=== PATIENT | female | born 1955 | race Hispanic/Latino ===

== ENCOUNTER 2021-10-22 16:21 | Inpatient (IN) | payer MEDICARE, OTHER, SELFPAY ==
[2021-10-22] VITALS (11 sets, daily range): BP systolic 102–139; BP diastolic 43–77; PULSE 67–85; RESP 17–18; TEMP 36.6–37.3; O2SAT 93–98; BMI 29.2
--- NOTE | 2021-10-22 17:05 | ED.EXTPRO ---
HPI - Extremity Problem General Chief complaint: Extremity Problem,Nontraumatic Stated complaint: RIGHT LEG CRAMP Time Seen by Provider: 10/22/21 16:45 Source: patient and family Mode of arrival: Wheelchair History of Present Illness HPI Narrative: Patient is 66-year-old female history of coronary artery disease with 4 stents, chronic cough presenting today with right leg pain. It starts from her hip and goes all way down to her toe. sHe said it started last evening. She says starts in her buttock. She has no changes in bowel or bladder habits. She denies any back pain. Support person with her states that her cough and shortness of breath have gotten worse over the last few days but patient denies it. She has no chest pain or palpitations. She has not had any fever or chills. Her cough is very nonproductive. Patient actually says that she had difficulty sleeping last night because she kept coughing. She had COVID a few months ago. Patient does have a very remote history of DVT 4 years ago she was put on warfarin. She is up here visiting on vacation she actually walked a lot yesterday more so than she normally does. She is on Lyrica for neuropathy and pain all ready. Related Data Home Medications Medication Instructions Recorded Confirmed aspirin 81 mg chewable tablet 81 mg PO DAILY 10/22/21 10/22/21 carvedilol 3.125 mg tablet 1 tab PO BID 10/22/21 10/22/21 clopidogrel 75 mg tablet 1 tab PO QAM 10/22/21 10/22/21 docusate sodium 50 mg capsule 50 mg PO BID 10/22/21 10/22/21 famotidine 20 mg tablet 20 mg PO BID 10/22/21 10/22/21 ferrous sulfate 325 mg (65 mg 325 mg PO DAILY 10/22/21 10/22/21 iron) tablet furosemide 40 mg tablet 1 tab PO QAM 10/22/21 10/22/21 insulin aspart U-100 100 unit/mL See Rx Instructions .Route .COMPLEX 10/22/21 10/22/21 subcutaneous cartridge (Novolog PenFill U-100 Insulin aspart) insulin glargine 100 unit/mL (3 25 unit SUBCUT QAM 10/22/21 10/22/21 mL) subcutaneous pen (Lantus Solostar U-100 Insulin) isosorbide dinitrate 10 mg tablet 1 tab PO BID 10/22/21 10/22/21 pregabalin 50 mg capsule 1 cap PO QAM 10/22/21 10/22/21 rosuvastatin 40 mg tablet 1 tab PO QPM 10/22/21 10/22/21 sacubitril 24 mg-valsartan 26 mg 1 tab PO BID 10/22/21 10/22/21 tablet (Entresto) spironolactone 25 mg tablet 1 tab PO QAM 10/22/21 10/22/21 Allergies Allergy/AdvReac Type Severity Reaction Status Date / Time gabapentin Allergy Rash Verified 10/22/21 16:35 Review of Systems Review of Systems Narrative: GENERAL: Denies chills, fatigue, malaise, fever, sweats, travel HEENT: Denies sinus pain, ear pain, sore throat, difficulty swallowing, neck pain RESPIRATORY: See HPI CARDIOVASCULAR: Denies chest pain, palpitations, orthopnea, edema GASTROINTESTINAL: Denies nausea, vomiting, abdominal pain, diarrhea, constipation, melena. : Denies dysuria, frequency, incontinence, hematuria, urinary retention, flank pain. MUSCULOSKELETAL: See HPI SKIN: No rash, no erythema, no pruritus NEUROLOGIC: Denies weakness, dizziness, headache, numbness, change in speech, confusion PSYCHIATRIC: No concerning psychosocial issues. 12 point review of systems is negative except for those stated above and HPI Patient History Social History household members: significant other Smoking Status: Never smoker alcohol intake: never Smoking Status: Never smoker Substance Use Type: does not use Exam Initial Vital Signs Initial Vital Signs: Vital Signs Temperature 99.1 F 10/22/21 16:30 Pulse Rate 82 10/22/21 16:30 Respiratory Rate 18 10/22/21 16:30 Blood Pressure 110/56 L 10/22/21 16:30 Pulse Oximetry 93 10/22/21 16:30 Oxygen Delivery Method 10/22/21 16:30 GENERAL: Alert 66-year-old female no acute distress HEENT: Head atraumatic,EOMI, pupils reactive, face symmetric, moist mucous membranes CARDIOVASCULAR: Regular rate and rhythm without murmurs, rubs or gallops. RESPIRATORY: Breath sounds equal bilaterally, no wheezes rales or rhonchi. Coughing with deep breath ABDOMEN: Soft, nontender. Normoactive bowel sounds all 4 quadrants. No guarding or rebound. EXTREMITIES: Normal range of motion, no clubbing or edema. Neurovascularly intact Right-sided buttock pain is reproducible with palpation no hip pain NEUROLOGICAL: Alert and oriented x4.Normal gait and speech. SKIN: Warm, dry, no laceration, no petechiae, no rashes or lesions. Course Orders Ordered: Acetaminophen (Acetaminophen 325 Mg Tablet) 650 mg PO Q6HR PRN PRN Reason: Fever/Mild Pain (1-3) Aspirin (Aspirin 81 Mg Chew Tab) 81 mg PO DAILY [facility] Carvedilol (Carvedilol 3.125 Mg Tablet) 3.125 mg PO BID [facility] Clopidogrel Bisulfate (Clopidogrel 75 Mg Tablet) 75 mg PO DAILY [facility] Last Admin: 10/23/21 06:49 Dose: 75 mg Documented By: TONIE Dextrose (Dextrose 50 % In Water 25 Gm/50 Ml Syringe) 25 gm IV PRN PRN PRN Reason: Hypoglycemia Furosemide (Furosemide 40 Mg/4 Ml Vial) 40 mg IV Q12HR [facility] Last Admin: 10/23/21 00:30 Dose: 40 mg Documented By: TONIE Heparin Sodium (Porcine) (Heparin 5,000 Unit/Ml Vial) 5,000 unit SUBCUT BID [facility] Last Admin: 10/23/21 00:15 Dose: 5,000 unit Documented By: TONIE Insulin Glargine (Insulin Glargine 100 Unit/Ml 3ml Pen) 25 unit SUBCUT BEDTIME [facility] Last Admin: 10/23/21 00:16 Dose: 25 unit Documented By: TONIE Co-signed By: JASWINDER Insulin Human Lispro (Insulin Lispro 100 Unit/Ml 3ml Vial) 0 unit SUBCUT ACHS [facility]; Protocol Last Admin: 10/23/21 00:23 Dose: 1 unit Documented By: TONIE Co-signed By: JASWINDER Isosorbide Dinitrate (Isosorbide Dinitrate 10 Mg Tablet) 10 mg PO BID [facility] Naloxone HCl (Naloxone 0.4 Mg/Ml Vial) 0.2 mg IV Q2MIN PRN PRN Reason: Opiate Reversal Ondansetron HCl (Ondansetron 4 Mg/2 Ml Inj) 4 mg IV Q8HR PRN PRN Reason: Nausea And Vomiting Discontinued Medications Albuterol/Ipratropium (Albuterol/Ipratropium 3 Ml Ampul) 3 ml INH NOW ONE Stop: 10/22/21 17:42 Furosemide (Furosemide 40 Mg/4 Ml Vial) 40 mg IV NOW ONE Stop: 10/22/21 18:22 Last Admin: 10/22/21 18:45 Dose: 40 mg Documented By: ROB Hydromorphone HCl (Hydromorphone 1 Mg Inj) 0.5 mg IV NOW ONE Stop: 10/22/21 17:17 Last Admin: 10/22/21 17:42 Dose: 0.5 mg Documented By: ROB Vital Signs Vital signs: Vital Signs - 8 hr 10/22/21 16:30 10/22/21 16:39 10/22/21 17:00 Temperature 99.1 F Pulse Rate 82 81 83 Respiratory Rate 18 Blood Pressure 110/56 L 112/58 L Pulse Oximetry 93 95 96 Oxygen Delivery Method Room Air 10/22/21 17:30 10/22/21 18:00 10/22/21 18:30 Temperature Pulse Rate 81 85 79 Respiratory Rate Blood Pressure 116/58 L 123/77 Pulse Oximetry 96 94 93 Oxygen Delivery Method MDM - Extremity (Nontraumatic) Lab Data Result diagrams: 10/23/21 06:02 10/23/21 06:02 Labs: Lab Results 10/22/21 10/22/21 10/22/21 Range/Units 16:34 17:35 17:35 WBC 7.8 (4.5-11.0) X10^3/uL RBC 3.26 L (4.0-5.2) X10^6/uL Hgb 9.4 L (12.0-16.0) g/dL Hct 27.9 L (36-46) % MCV 85.6 (80-100) fL MCH 28.9 (26-34) PG MCHC 33.8 (30-36) % RDW 12.6 (11.6-14.8) % Plt Count 171 (150-400) X10^3/uL Neut % (Auto) 68.5 (50-75) % Lymph % (Auto) 12.7 L (25-40) % [place] % (Auto) 11.5 (3-14) % Eos % (Auto) 6.5 H (2-4) % Baso % (Auto) 0.8 (0-2) % Neut # (Auto) 5300 (6979-0558) /uL Lymph # (Auto) 1000 L (0550-6290) /uL [place] # (Auto) 900 (0-900) /uL Eos # (Auto) 500 H (0-450) /uL Baso # (Auto) 100 (0-100) /uL Sodium 135 L (137-145) mmol/L Potassium 4.5 (3.4-5.1) mmol/L Chloride 100 (98-107) mmol/L Carbon Dioxide 27 (22-32) mmol/L BUN 48 H (7-17) mg/dL Creatinine 3.07 H (0.52-1.04) mg/dL Estimated GFR 16 L (>60) mL/min BUN/Creatinine Ratio 15.6 (6-22) Glucose 309 H (80-110) mg/dL Calcium 8.2 L (8.4-10.2) mg/dL Total Bilirubin 0.5 (0.2-1.3) mg/dL AST 32 (14-36) IU/L ALT 20 (<35) IU/L Alkaline Phosphatase 114 (38-126) U/L Total Creatine Kinase 410 H (30-135) U/L CK-MB (CK-2) 3.28 H (<2.37) ng/mL CK-MB (CK-2) Rel Index 0.8 L (1.5-5.0) % Troponin I 0.035 H (0.01-0.034) ng/mL NT-Pro-B Natriuret Pep 3340 H (<125) pg/mL Total Protein 7.9 (6.3-8.2) g/dL Albumin 4.2 (3.5-5.0) g/dL Globulin 3.7 (1.7-4.1) g/dL Albumin/Globulin Ratio 1.1 (1.0-2.8) Lipase 122 (23-300) U/L SARS-CoV-2 (PCR) Negative (Negative) Imaging Data Chest x-ray: Radiologist's Impression: XRay Report Signed Patient: Suzanne Valle MR#: [id number] : 1955 Acct:[id number] Age/Sex: 66 / F Date of Service: 10/22/21 Loc: ED Accession Number: [id number] ?? Procedure: XR chest 1V Ordering Provider: Caprice Live D.O. PROCEDURE:? XR CHEST 1V ? INDICATIONS:? short of breath ? TECHNIQUE:? One view of the chest was acquired.? ? COMPARISON:? [facility], CR, XR CHEST 1 VIEW, 12/11/2018, 13:17. ? FINDINGS:? ? Surgical changes and devices:? Median sternotomy wires are stable..? ? Lungs and pleura:? Streaky opacity in left lung base which are stable compared to prior exam could represent recurrent atelectasis or parenchymal scarring.? No pleural effusions or pneumothorax.? ? Mediastinum:? Mediastinal contours appear normal.? Heart size is normal.? ? Bones and chest wall:? No suspicious bony lesions.? Overlying soft tissues appear unremarkable.? ? IMPRESSION:? No acute cardiopulmonary disease process. ? ? Dictated by: Carol Avina MD, PhD on 10/22/2021 at 17:58 ? ? ECG Data Interpretation: Normal sinus rhythm rate 70 p.r. interval 122 QRS [address] Q[address] changes T-wave inversions no priors to compare MDM Narrative Medical decision making narrative: Patient is here because she is complaining of pain in her right leg from her buttock down to her toe, pain is to sciatic like pain. It starts in her buttock it is worse with movement difficult to find a comfortable position. No significant swelling. However she does have a remote history of a DVT. All blood work reveals that she actually has an elevated creatinine of 3.0 BNP of greater than 3000. She is having more shortness of breath than normal according to her sister. Probable acute exacerbation of congestive heart failure and acute KI. Her other sister was able to find blood work off from May of 2021. Her creatinine then was 1.8 her hemoglobin was 11. Today creatinine is elevated at 3.0, hemoglobin is 9.8 troponin 0.035. Troponin is likely elevated secondary to kidney function may repeat pending. Patient O2 does decreased to 88% on room air Patient is given 40 mg of Lasix for diuresis. Dr. Novak, accepts patient for admission Discharge Plan Departure Patient Disposition: Admitted As Inpatient Clinical Impression: CHF (congestive heart failure), GRZEGORZ (acute kidney injury), Sciatica Admit Date/Time: 10/22/21 18:48 Admit Provider: Nelida Barrera
--- NOTE | 2021-10-22 17:17 | DI.RAD.S_ITS ---
PROCEDURE: XR CHEST 1V INDICATIONS: short of breath TECHNIQUE: One view of the chest was acquired. COMPARISON: [facility], CR, XR CHEST 1 VIEW, 12/11/2018, 13:17. FINDINGS: Surgical changes and devices: Median sternotomy wires are stable.. Lungs and pleura: Streaky opacity in left lung base which are stable compared to prior exam could represent recurrent atelectasis or parenchymal scarring. No pleural effusions or pneumothorax. Mediastinum: Mediastinal contours appear normal. Heart size is normal. Bones and chest wall: No suspicious bony lesions. Overlying soft tissues appear unremarkable. IMPRESSION: No acute cardiopulmonary disease process. Dictated by: Carol Avina MD, PhD on 10/22/2021 at 17:58 Approved by: Carol Avina MD, PhD on 10/22/2021 at 17:58
[2021-10-22 17:42] LABS: Add Manual Diff / Slide Review NO; Basophils Absolute Auto 100 /uL (0-100); Basophils Percent Auto 0.8 % (0-2); Eosinophils Absolute Auto 500 /uL (0-450); Eosinophils Percent Auto 6.5 % (2-4); Hematocrit 27.9 % (36-46); Hemoglobin 9.4 g/dL (12.0-16.0); Lymphocytes Absolute Auto 1000 /uL (1100-4500); Lymphocytes Percent Auto 12.7 % (25-40); Mean Corpuscular HGB Conc 33.8 % (30-36); Mean Corpuscular Hemoglobin 28.9 PG (26-34); Mean Corpuscular Volume 85.6 fL (80-100); Monocytes Absolute Auto 900 /uL (0-900); Monocytes Percent Auto 11.5 % (3-14); Neutrophils Absolute Auto 5300 /uL (1500-7000); Neutrophils Percent Auto 68.5 % (50-75); Platelet Count 171 X10^3/uL (150-400); Red Blood Cell Count 3.26 X10^6/uL (4.0-5.2); Red Cell Distribution Width 12.6 % (11.6-14.8); White Blood Cell Count 7.8 X10^3/uL (4.5-11.0)
[2021-10-22] MEDS: HYDROMORPHONE 1 MG INJ 0.5 MG IV (17:42)
[2021-10-22 17:54] LABS: Alanine Aminotransferase 20 IU/L (<35); Albumin 4.2 g/dL (3.5-5.0); Albumin Globulin Ratio 1.1 (1.0-2.8); Alkaline Phosphatase 114 U/L (38-126); Aspartate Aminotransferase 32 IU/L (14-36); BUN Creatinine Ratio 15.6 (6-22); Bilirubin Total 0.5 mg/dL (0.2-1.3); Blood Urea Nitrogen 48 mg/dL (7-17); Calcium 8.2 mg/dL (8.4-10.2); Carbon Dioxide 27 mmol/L (22-32); Chloride 100 mmol/L (98-107); Creatine Kinase 410 U/L (30-135); Estimated Glomerular Filt Rate 16 mL/min (>60); Globulin 3.7 g/dL (1.7-4.1); Glucose 309 mg/dL (80-110); HEMOLYSIS < 15 (0-50); Lipase 122 U/L (23-300); Potassium 4.5 mmol/L (3.4-5.1); Sodium 135 mmol/L (137-145); Total Protein 7.9 g/dL (6.3-8.2)
[2021-10-22 18:05] LABS: NT-proBNP (BNP-Adult 18+) 3340 pg/mL (<125); Troponin I 0.035 ng/mL (0.01-0.034)
[2021-10-22 18:13] LABS: CKMB % Relative Index 0.8 % (1.5-5.0); Creatine Kinase MB 3.28 ng/mL (<2.37)
[2021-10-22] MEDS: FUROSEMIDE 40 MG/4 ML VIAL IV (18:45)
--- NOTE | 2021-10-22 18:45 | DI.US.S_ITS ---
PROCEDURE: US PERIPH VENOUS LOW EXTREM RT INDICATIONS: PAIN TECHNIQUE: Real-time imaging, as well as color and pulse Doppler interrogation, were performed of the lower extremity deep veins from the inguinal ligament to the popliteal fossa. COMPARISON: None. FINDINGS: The common femoral, femoral and popliteal veins are normally compressible, and free of intraluminal thrombus. Color and pulse Doppler demonstrate normal phasic intraluminal flow. There is normal augmentation response to distal compression maneuver. IMPRESSION: No evidence of deep vein thrombosis involving the right lower extremity. Dictated by: Carol Avina MD, PhD on 10/22/2021 at 19:44 Approved by: Carol Avina MD, PhD on 10/22/2021 at 19:44
[2021-10-22 19:53] LABS: COVID19 -Nasal RAPID Negative (Negative)
[2021-10-22 20:00] LABS: Troponin I 0.032 ng/mL (0.01-0.034)
--- NOTE | 2021-10-22 20:09 | PM.HP.1 ---
History of Present Illness History of Present Illness Date Patient Seen: 10/22/21 Time Patient Seen: 20:00 Chief complaint: RIGHT LEG CRAMP Narrative: Ms. Valle is a 66W with PMH CAD with stents, CKD stage 3, DM, CHF, CAD who presents with leg pain and worsening shortness of breath. She notes pain in her buttock that radiates down to her toe, which started yesterday. She has no trauma, no bowel/bladder changes. She has not had pain like this previously. She has had a chronic cough but over the past few days has worse shortness of breath. No chest pain, palpitation, fever/chills. Her cough is not productive. She had COVID months ago. She does have a remote history of a DVT. She has previously been on dialysis but this was not recently, and was in setting of acute illness and only for one month. In the ED workup was done, vitals notable for o2 sat in the 80s. Labs notable for WBC 7.8, hgb 9.4, plts 171. BUN 48, creatinine 3.07. Trop 0.035, BNP 3340. Chest xray showed no acute process. She was placed on oxygen. She was given pain medications and lasix and was admitted for further treatment. PMH: CHF, CKD stage 3, CAD s/p PCI, Type 2 DM, HTN, WALTER Social history: denies any smoking, alcohol use Family history: father with CAD, mother with DM Meds: insulin, imdur, rosuvastatin, spironolactone, plavix, coreg Patient History Family & Social History Safety & Behavioral: Feels Safe in Current Yes Environment Tobacco & Substance use: Smoking Status Never smoker Substance Use Type does not use Meds Home Medications and Allergies Allergies Allergy/AdvReac Type Severity Reaction Status Date / Time gabapentin Allergy Rash Verified 10/22/21 16:35 Review of Systems Review of Systems Narrative: 14 systems reviewed and negative aside from what is noted in HPI Exam Vital Signs (past 8 hours): - 10/22/21 16:30 10/22/21 16:39 10/22/21 17:00 Temperature 99.1 F Pulse Rate 82 81 83 Respiratory Rate 18 Blood Pressure 110/56 L 112/58 L Pulse Oximetry 93 95 96 Oxygen Delivery Method Room Air 10/22/21 17:30 10/22/21 18:00 10/22/21 18:30 Temperature Pulse Rate 81 85 79 Respiratory Rate Blood Pressure 116/58 L 123/77 Pulse Oximetry 96 94 93 Oxygen Delivery Method 10/22/21 18:46 10/22/21 18:46 10/22/21 19:00 Temperature Pulse Rate 78 67 Respiratory Rate Blood Pressure 123/73 Pulse Oximetry 98 98 Oxygen Delivery Method Oxygen Delivery Method Room Air Narrative Exam Narrative: GEN: no acute distress HEENT: moist mucous membranes, PERRL NECK: trachea midline, no JVD CV: regular rate and rhythm, no murmurs PULM: slight wheeze in right lung, otherwise clear ABD: soft, nontender, nondistended, no organomegaly, normal bowel sounds EXT: warm and well perfused with no edema NEURO: awake, alert, oriented, no focal deficits noted Objective Labs Result Diagrams: 10/22/21 17:35 10/22/21 17:35 Labs: Laboratory Results - last 24 hr 10/22/21 10/22/21 10/22/21 16:34 17:35 17:35 WBC 7.8 RBC 3.26 L Hgb 9.4 L Hct 27.9 L MCV 85.6 MCH 28.9 MCHC 33.8 RDW 12.6 Plt Count 171 Neut % (Auto) 68.5 Lymph % (Auto) 12.7 L [place] % (Auto) 11.5 Eos % (Auto) 6.5 H Baso % (Auto) 0.8 Neut # (Auto) 5300 Lymph # (Auto) 1000 L [place] # (Auto) 900 Eos # (Auto) 500 H Baso # (Auto) 100 Sodium 135 L Potassium 4.5 Chloride 100 Carbon Dioxide 27 BUN 48 H Creatinine 3.07 H Estimated GFR 16 L BUN/Creatinine Ratio 15.6 Glucose 309 H Calcium 8.2 L Total Bilirubin 0.5 AST 32 ALT 20 Alkaline Phosphatase 114 Total Creatine Kinase 410 H CK-MB (CK-2) 3.28 H CK-MB (CK-2) Rel Index 0.8 L Troponin I 0.035 H NT-Pro-B Natriuret Pep 3340 H Total Protein 7.9 Albumin 4.2 Globulin 3.7 Albumin/Globulin Ratio 1.1 Lipase 122 SARS-CoV-2 (PCR) Negative 10/22/21 19:28 WBC RBC Hgb Hct MCV MCH MCHC RDW Plt Count Neut % (Auto) Lymph % (Auto) [place] % (Auto) Eos % (Auto) Baso % (Auto) Neut # (Auto) Lymph # (Auto) [place] # (Auto) Eos # (Auto) Baso # (Auto) Sodium Potassium Chloride Carbon Dioxide BUN Creatinine Estimated GFR BUN/Creatinine Ratio Glucose Calcium Total Bilirubin AST ALT Alkaline Phosphatase Total Creatine Kinase CK-MB (CK-2) CK-MB (CK-2) Rel Index Troponin I 0.032 NT-Pro-B Natriuret Pep Total Protein Albumin Globulin Albumin/Globulin Ratio Lipase SARS-CoV-2 (PCR) Assessment & Plan Assessment & Plan narrative: Ms. Valle is a 66W with PMH CHF, CKD stage 3, CAD who presents with leg pain and worsening chronic shortness of breath. 1. Shortness of breath -presumed CHF exacerbation -patient with known history of CHF -EF unknown -ordered ECHO -low salt diet -fluid restriction -lasix 40mv IV BID, goal 1-2L net negative, may need higher doses given low GFR 2. GRZEGORZ on CKD stage 3 -baseline creatinine appears to be near 1.8 -hold spironolactone for now -check renal ultrasound, urine sodium/creatinine -empiric diuretic treatment for possible renal vascular congestion 3. Anemia -normocytic -suspect could be from long standing renal disease -no evidence of over bleeding -recheck in AM 4. Elevated troponin, myocardial demand ischemia -initial trop 0.035, repeat decreased to 0.032 -no chest pain -EKG with no acute findings -suspect demand ischemia from GRZEGORZ/ CHF -already on plavix, statin 5. CAD s/p PCI -continue plavix, statin 6. Type 2 DM on insulin -continue lantus 25U daily -low dose insulin sliding scale 7. Sciatica -patient with shooting leg leg pain originating in back -u/s negative for DVT -pain medications prn 8. WALTER -rt consult for CPAP CODE: Full Proxy: Jasmyne Ivan I have utilized all available resources to reconcile the patient's home medications Time Spent With Patient Critical Care time: I spent a total of [] minutes of critical care time on this patient's care today; this time is exclusive of procedural time. Quality MIPS - Admit I confirm the patient?s Advance Care Plan is present, Code status is documented, Surrogate decision maker is in patient?s record [If Yes, STOP here]: Yes
--- NOTE | 2021-10-22 21:29 | DI.US.S_ITS ---
PROCEDURE: US RENAL COMPLETE INDICATIONS: ACUTE KIDNEY INFECTION TECHNIQUE: Real-time scanning was performed of the kidneys and bladder, with image documentation. COMPARISON: None. FINDINGS: Kidneys: Kidneys are normal in size. Right kidney measures 9.1 cm long; left kidney measures 11.1 cm long. Right renal cortical thickness is 1.5 cm; left renal cortical thickness is 1.8 cm. Renal cortical echotexture is normal. No hydronephrosis. 6 millimeter nonobstructing stone noted in the left kidney. No suspicious solid mass lesions. Bladder: Pre-void bladder volume is 382 mL. Post-void residual is 68 mL. Pre-void images demonstrate no intraluminal masses or stones. On pre-void images, both the right and left ureteral jets are noted with color Doppler interrogation. (Of note, ureteral jets may not be detectable in up to 25% of cases due to insufficient differences in specific gravity between ureteral and bladder urine). Miscellaneous: No free pelvic fluid. IMPRESSION: 6 millimeter nonobstructing left renal stone. No hydronephrosis. Dictated by: Carol Avina MD, PhD on 10/23/2021 at 12:06 Approved by: Carol Avina MD, PhD on 10/23/2021 at 12:08
--- NOTE | 2021-10-22 21:29 | DI.ECHO.S_ITS ---
[facility]---------[facility] +---------+ : : [address] : : : : [id number] : : : : Phone: [phone] Echocardiogram Report + + :Name: GABRIELE OLMEDO Study Date: 10/23/2021 Height: 62 in : :[facility] ReadingLocation: Weight: 160 lb : : Gender: Female BSA: 1.7 m2 : :: 1955 Age: 66 yrs BP: 111/58 mmHg: :Reason For Study: CONGESTIVE HEART FAILURE : :Ordering Physician: SINAN, : :PERLA Performed By: Kayli Brennan : :Referring: PERLA MENON : + + Interpretation Summary 1) Normal left ventricular size and thickness with mildly to moderately reduced systolic function (EF 40-45%). 2) The inferior wall and the anteroseptum extending to the basal to mid inferoseptum are severely hypokinetic to akinetic. 3) Normal right ventricular size and mildly reduced function. 4) No significant valvular abonrmalitie.s 5) Compared to the Echo done 12/10/2018, LVEF has increased from 35-40% to 40- 45% on this study. Procedure: A two-dimensional transthoracic echocardiogram with color flow and Doppler was performed. The study quality was technically adequate. A contrast injection of Definity was performed to improve assessment of LV function. Comparison is made with the echocardiogram of 12/10/2018. The patient was in sinus rhythm with heart rates between 75-80 bpm during the exam. Left Ventricle: The left ventricle is normal in size and wall thickness. The ejection fraction is estimated to be 40-45%. The inferior wall and the anteroseptum extending to the basal to mid inferoseptum are severely hypokinetic to akinetic. Right Ventricle: The right ventricle is normal size. Right ventricular systolic function is mildly reduced. Atria: The left atrium is mildly dilated. Right atrial size is normal. There is no Doppler evidence for an interatrial shunt. Mitral Valve: There is mild mitral annular calcification. The mitral valve leaflets appear mildly thickened, but open well. There is trace mitral regurgitation. Aortic Valve: The aortic valve is trileaflet. The aortic valve opens well. There is no aortic valve stenosis. No aortic regurgitation is present. Tricuspid Valve: The tricuspid valve is normal in structure and function. There is mild tricuspid regurgitation. Pulmonic Valve: The pulmonic valve leaflets are thin and pliable; valve motion is normal. There is no pulmonic valvular regurgitation. Great Vessels: The aortic root is normal size. The dimensions of the ascending aorta are normal. The inferior vena cava was not visualized. Pericardium/ Pleura There is no pericardial effusion. There is no pleural effusion. MMode/2D Measurements & Calculations LVIDd: 4.4 cm LVOT diam: 2.0 cm LVIDs: 3.0 cm Ao root diam: 3.0 cm FS: 32.7 % asc Aorta Diam: 3.3 cm IVSd: 0.90 cm Ao Arch Diam (Prox Trans): 2.9 cm LVPWd: 1.0 cm LV julien. diameter/BSA (cm/m^2): 2.6 LV sys. diameter/BSA (cm/m^2): 1.7 LA A2 area: 19.6 cm2 RA long axis: 4.9 cm LA A4 area: 19.1 cm2 RA area: 15.8 cm2 LA length (vol): 4.9 cm RA vol: 43.7 ml LA vol: 65.2 ml RA : 25.1 ml/m2 LA vol index: 37.5 ml/m2 RVD1 (basal): 2.8 cm RVD2 (mid): 2.5 cm TAPSE: 1.3 cm Doppler Measurements & Calculations Ao V2 max: 128.3 cm/sec LVOT Max Patrick: 84.0 cm/sec Ao V2 mean: 89.9 cm/sec LV V1 max P.8 mmHg Ao max P.6 mmHg LV V1 VTI: 16.4 cm Ao mean P.6 mmHg KYARA(I,D): 2.1 cm2 Ao V2 VTI: 25.7 cm KYARA(V,D): 2.1 cm2 sev ratio: 0.64 KYARA indexed to BSA (cm^2/m^2): 1.2 MV E max patrick: 47.1 cm/sec TR max patrick: 203.0 cm/sec MV A max patrick: 80.9 cm/sec TR max P.5 mmHg MV E/A: 0.58 PA V2 max: 91.5 cm/sec Med Peak E' Patrick: 3.1 cm/sec PA V2 mean: 63.3 cm/sec E/E' med: 15.1 PA mean P.8 mmHg Lat Peak E' Patrick: 8.1 cm/sec PA pr(Accel): 37.9 mmHg E/E' lat: 5.8 E/e' average: 10.5 MV dec time: 0.33 sec SV(LVOT): 53.7 ml Reading Physician:12:56 PM
[2021-10-22 22:56] LABS: Creatinine Urine Random 48.4 mg/dL; Sodium Urine Random 93 mmol/L (30-90)
[2021-10-23] VITALS (11 sets, daily range): BP systolic 101–132; BP diastolic 43–58; PULSE 73–79; RESP 16–17; TEMP 36.2–36.9; O2SAT 95–98
[2021-10-23] MEDS: HEPARIN 5,000 UNIT/ML VIAL 5000 UNIT SUBCUT ×3 (00:15→20:59)
[2021-10-23] MEDS: INSULIN GLARGINE 100 UNIT/ML 3ML PEN 25 UNIT SUBCUT ×2 (00:16→20:54)
[2021-10-23] MEDS: INSULIN LISPRO 100 UNIT/ML 3ML VIAL SUBCUT ×5 (00:23→20:50)
[2021-10-23] MEDS: FUROSEMIDE 40 MG/4 ML VIAL IV (00:30)
[2021-10-23 06:34] LABS: Add Manual Diff / Slide Review NO; Basophils Absolute Auto 0 /uL (0-100); Basophils Percent Auto 0.6 % (0-2); Eosinophils Absolute Auto 700 /uL (0-450); Eosinophils Percent Auto 10.1 % (2-4); Hematocrit 27.7 % (36-46); Hemoglobin 9.4 g/dL (12.0-16.0); Lymphocytes Absolute Auto 1500 /uL (1100-4500); Lymphocytes Percent Auto 21.7 % (25-40); Mean Corpuscular HGB Conc 33.9 % (30-36); Mean Corpuscular Hemoglobin 28.9 PG (26-34); Mean Corpuscular Volume 85.4 fL (80-100); Monocytes Absolute Auto 1000 /uL (0-900); Monocytes Percent Auto 15.2 % (3-14); Neutrophils Absolute Auto 3600 /uL (1500-7000); Neutrophils Percent Auto 52.4 % (50-75); Platelet Count 156 X10^3/uL (150-400); Red Blood Cell Count 3.24 X10^6/uL (4.0-5.2); Red Cell Distribution Width 12.7 % (11.6-14.8); White Blood Cell Count 6.9 X10^3/uL (4.5-11.0)
[2021-10-23 06:47] LABS: BUN Creatinine Ratio 16.2 (6-22); Blood Urea Nitrogen 49 mg/dL (7-17); Calcium 8.2 mg/dL (8.4-10.2); Carbon Dioxide 27 mmol/L (22-32); Chloride 102 mmol/L (98-107); Estimated Glomerular Filt Rate 16 mL/min (>60); Glucose 175 mg/dL (80-110); HEMOLYSIS < 15 (0-50); Magnesium 2.8 mg/dL (1.6-2.3); Sodium 136 mmol/L (137-145)
[2021-10-23] MEDS: CLOPIDOGREL 75 MG TABLET PO (06:49)
--- NOTE | 2021-10-23 07:08 | PC.NURSE ---
Admit/NOC Shift Note- Patient arrived to room via stretcher from er AST 2029. Patient alert and oriented and able to make needs known to staff. Admit questions done, medications reviewed, physical assessment done, and skin check completed. Patient oriented to bed and bed controls, room, lights, phone, bathroom, menu, and call cardoso/tv remote. Safety measures in place. bed alarm activated. Patient agrees to call for assistance. Call cardoso and phone within reach. will continue to monitor.
[2021-10-23] MEDS: ASPIRIN 81 MG CHEW TAB PO (09:32)
[2021-10-23] MEDS: ISOSORBIDE DINITRATE 10 MG TABLET PO ×2 (09:33→21:02)
[2021-10-23] MEDS: ACETAMINOPHEN 325 MG TABLET 650 MG PO (09:35)
--- NOTE | 2021-10-23 11:39 | CM.DANOTE ---
Initial DCP Assessment Note Pt is a 66 yo female, resident of [facility], arrives w/ leg cramp and SOB, PMH includes significant cardiac hx/complications, WALTER, Type II DM, admitted for CHF exacerbation and placed on O2 PCP: Lupe KIM Payer: JACQUELINE/Juwan Reviewed chart, met w/patient, introduced role. Patient lives in the [facility], has traveled here w/family to attend a family reunion. Patient is staying in a cabin at [facility] w/family and plans to return upon DC. Patient expects to DC before Thursday, the day of her reunion. No DC needs or concerns identified today, this SORORITY MOTHER will remain available in case this changes before DC ALPHONSO Kohli Discharge Planning/Care Management CM Discharge Assessment Start: 10/23/21 11:32 Freq: Status: Active Protocol: Document 10/23/21 11:32 CHRISTIANE (Rec: 10/23/21 11:39 [id number]) Discharge Planning Assessment Assigned [employer] ALPHONSO Caro DPOA/Assigned Designee Name sister Strong Contact Information [phone] Advance Directives? Yes Advance Directives on File No History Provided By Patient Prior Living Arrangements House Household Members significant other Type of transportation used prior to Drives own vehicle admit Comment Patient lives in [facility] Independent with ADL's Yes Is patient alert and oriented? Yes Barriers to Discharge No Comment Home w/family. Patient wants to DC before Thursday in order to make it to her family reunion. Discharge Plan Home Transportation Arrangement Family Referrals Initiated None needed
[2021-10-23] MEDS: SODIUM CHLORIDE 0.9% 500 ML 250 ML IV (12:41)
--- NOTE | 2021-10-23 13:12 | PC.NURSE ---
Pt bp at 1200 was 86/30 right arm and 79/37 left arm. Reported this to Dr. Savage and a 500ml NS bolus was ordered over 2 hours,and lasix was held.
--- NOTE | 2021-10-23 14:10 | PM.PN.1 ---
Subjective Subjective Date Patient Seen: 10/23/21 Interval history: Hospitalist visit follow-up. As per hospital history and physical the history of present illness is as follows: Ms. Valle is a 66W with PMH CAD with stents, CKD stage 3, DM, CHF, CAD who presents with leg pain and worsening shortness of breath. She noted pain in her buttock that radiates down to her toe, which started yesterday. She has no trauma, no bowel/bladder changes. She has not had pain like this previously. She has had a chronic cough but over the past few days has worse shortness of breath. No chest pain, palpitation, fever/chills. Her cough is not productive. She had COVID months ago. She does have a remote history of a DVT. She has previously been on dialysis but this was not recently, and was in setting of acute illness and only for one month. Exam Vital Signs (past 8 hours): - 10/23/21 07:55 10/23/21 09:38 10/23/21 08:00 Temperature 98.5 F Pulse Rate 78 Respiratory Rate 16 Blood Pressure 101/43 L 101/43 L Pulse Oximetry 96 96 Oxygen Delivery Method Room Air Oxygen Flow Rate 0 0 Oxygen Delivery Method Room Air Oxygen Flow Rate 0 Narrative Exam Narrative: GEN: no acute distress HEENT: moist mucous membranes, PERRL NECK: trachea midline, no JVD CV: regular rate and rhythm, no murmurs PULM: No wheezes or crackles. Adequate air entry. ABD: soft, nontender, nondistended, no organomegaly, normal bowel sounds EXT: warm and well perfused with no edema NEURO: awake, alert, oriented, no focal deficits noted Objective Labs Result Diagrams: 10/23/21 06:02 10/23/21 06:02 Labs: Laboratory Results - last 24 hr 10/22/21 10/22/21 10/22/21 16:34 17:35 17:35 WBC 7.8 RBC 3.26 L Hgb 9.4 L Hct 27.9 L MCV 85.6 MCH 28.9 MCHC 33.8 RDW 12.6 Plt Count 171 Neut % (Auto) 68.5 Lymph % (Auto) 12.7 L Blair % (Auto) 11.5 Eos % (Auto) 6.5 H Baso % (Auto) 0.8 Neut # (Auto) 5300 Lymph # (Auto) 1000 L Blair # (Auto) 900 Eos # (Auto) 500 H Baso # (Auto) 100 Sodium 135 L Potassium 4.5 Chloride 100 Carbon Dioxide 27 BUN 48 H Creatinine 3.07 H Estimated GFR 16 L BUN/Creatinine Ratio 15.6 Glucose 309 H Calcium 8.2 L Magnesium Total Bilirubin 0.5 AST 32 ALT 20 Alkaline Phosphatase 114 Total Creatine Kinase 410 H CK-MB (CK-2) 3.28 H CK-MB (CK-2) Rel Index 0.8 L Troponin I 0.035 H NT-Pro-B Natriuret Pep 3340 H Total Protein 7.9 Albumin 4.2 Globulin 3.7 Albumin/Globulin Ratio 1.1 Lipase 122 Ur Random Sodium Urine Creatinine SARS-CoV-2 (PCR) Negative 10/22/21 10/22/21 10/23/21 19:28 22:20 06:02 WBC 6.9 RBC 3.24 L Hgb 9.4 L Hct 27.7 L MCV 85.4 MCH 28.9 MCHC 33.9 RDW 12.7 Plt Count 156 Neut % (Auto) 52.4 Lymph % (Auto) 21.7 L Blair % (Auto) 15.2 H Eos % (Auto) 10.1 H Baso % (Auto) 0.6 Neut # (Auto) 3600 Lymph # (Auto) 1500 Blair # (Auto) 1000 H Eos # (Auto) 700 H Baso # (Auto) 0 Sodium Potassium Chloride Carbon Dioxide BUN Creatinine Estimated GFR BUN/Creatinine Ratio Glucose Calcium Magnesium Total Bilirubin AST ALT Alkaline Phosphatase Total Creatine Kinase CK-MB (CK-2) CK-MB (CK-2) Rel Index Troponin I 0.032 NT-Pro-B Natriuret Pep Total Protein Albumin Globulin Albumin/Globulin Ratio Lipase Ur Random Sodium 93 H Urine Creatinine 48.4 SARS-CoV-2 (PCR) 10/23/21 06:02 WBC RBC Hgb Hct MCV MCH MCHC RDW Plt Count Neut % (Auto) Lymph % (Auto) Blair % (Auto) Eos % (Auto) Baso % (Auto) Neut # (Auto) Lymph # (Auto) Blair # (Auto) Eos # (Auto) Baso # (Auto) Sodium 136 L Potassium 4.0 Chloride 102 Carbon Dioxide 27 BUN 49 H Creatinine 3.02 H Estimated GFR 16 L BUN/Creatinine Ratio 16.2 Glucose 175 H D Calcium 8.2 L Magnesium 2.8 H Total Bilirubin AST ALT Alkaline Phosphatase Total Creatine Kinase CK-MB (CK-2) CK-MB (CK-2) Rel Index Troponin I 0.030 NT-Pro-B Natriuret Pep Total Protein Albumin Globulin Albumin/Globulin Ratio Lipase Ur Random Sodium Urine Creatinine SARS-CoV-2 (PCR) [facility] Social History household members: significant other Smoking Status: Never smoker alcohol intake: never Assessment & Plan Assessment & Plan narrative: Ms. Valle is a 66W with PMH CHF, CKD stage 3, CAD who presents with leg pain and worsening chronic shortness of breath. 1. Shortness of breath Underlying congestive heart failure. Following echo her classification now is HFimpEF with ejection fracture of 40-45% currently. With intravenous furosemide patient's blood pressure dropped this morning. Systolic was in the 80s. The noontime dose of IV furosemide was held and patient was given 500 mL of normal saline infusion. To be completed over 2 hours. Patient improved and stabilized her blood pressure with this bolus. Will transition to oral furosemide instead of intravenous furosemide. 2. GRZEGORZ on CKD stage 3 GFR and creatinine have been stable since presentation. Continue to monitor. 3. Anemia Hemoglobin stable since admission. 4. Elevated troponin, myocardial demand ischemia Stable since admission at high normal/marginally elevated. 5. CAD s/p PCI Continue patient's regular medication of statin and Plavix. 6. Type 2 DM on insulin Lantus 25 units daily and this low sliding scale insulin. 7. Sciatica Pain medication as needed 8. WALTER RT has been consulted for CPAP 9. Patient with episode of hypotension this morning. Patient given bolus of 500 mL of normal saline over 2 hours and dose of IV furosemide at 12 noon was held. Patient has inadequate improvement requiring active, continuous management CODE: Sales Receptionist Spent With Patient Critical Care time: I spent a total of [] minutes of critical care time on this patient's care today; this time is exclusive of procedural time.
[2021-10-23] MEDS: FUROSEMIDE 40 MG TABLET PO (17:36)
[2021-10-23] MEDS: PREGABALIN 50 MG CAPSULE PO (20:44)
[2021-10-23] MEDS: carvediloL 3.125 MG TABLET PO (20:44)
[2021-10-24] VITALS (8 sets, daily range): BP systolic 78–130; BP diastolic 36–109; PULSE 68–79; RESP 16–18; TEMP 36.2–37.3; O2SAT 90–96
[2021-10-24] MEDS: CLOPIDOGREL 75 MG TABLET PO (07:58)
[2021-10-24 07:59] LABS: Alanine Aminotransferase 17 IU/L (<35); Albumin 3.8 g/dL (3.5-5.0); Albumin Globulin Ratio 1.1 (1.0-2.8); Alkaline Phosphatase 95 U/L (38-126); Aspartate Aminotransferase 26 IU/L (14-36); BUN Creatinine Ratio 16.3 (6-22); Bilirubin Total 0.3 mg/dL (0.2-1.3); Blood Urea Nitrogen 46 mg/dL (7-17); Calcium 8.3 mg/dL (8.4-10.2); Carbon Dioxide 28 mmol/L (22-32); Chloride 105 mmol/L (98-107); Estimated Glomerular Filt Rate 18 mL/min (>60); Globulin 3.6 g/dL (1.7-4.1); Glucose 107 mg/dL (80-110); HEMOLYSIS < 15 (0-50); Sodium 139 mmol/L (137-145); Total Protein 7.4 g/dL (6.3-8.2)
[2021-10-24] MEDS: HEPARIN 5,000 UNIT/ML VIAL 5000 UNIT SUBCUT (07:59)
[2021-10-24] MEDS: ASPIRIN 81 MG CHEW TAB PO (07:59)
[2021-10-24] MEDS: carvediloL 3.125 MG TABLET PO (07:59)
[2021-10-24] MEDS: ISOSORBIDE DINITRATE 10 MG TABLET PO (08:03)
[2021-10-24] MEDS: FUROSEMIDE 40 MG TABLET PO (08:09)
--- NOTE | 2021-10-24 11:39 | CM.DPNOTE ---
DC Note DC today expected, home w/family, to the cabin patient/family have reserved in [facility]. Patient has her own BR and a ramp to enter the cabin. Patient eager to DC, dtr at bedside. Provided list of DME providers/lending closets in the area per dtr's request (to secure a w/c). No further DC needs from this VISUAL ARTIST JW
[2021-10-24] MEDS: PANTOPRAZOLE DR 40 MG TABLET PO (13:28)
[2021-10-24] MEDS: INSULIN LISPRO 100 UNIT/ML 3ML VIAL SUBCUT (13:28)
[2021-10-24] MEDS: SODIUM CHLORIDE 0.9% 250 ML IV (13:36)
--- NOTE | 2021-10-24 14:19 | PM.DS.1 ---
History of Present Illness History of Present Illness Date Patient Seen: 10/24/21 Chief complaint: RIGHT LEG CRAMP Narrative: On presentation history and physical documented: Ms. Valle is a 66W with PMH CAD with stents, CKD stage 3, DM, CHF, CAD who presented with leg pain and worsening shortness of breath. She noted pain in her buttock that radiates down to her toe, which started. She has no trauma, no bowel/bladder changes. She has not had pain like this previously. She has had a chronic cough but over the past few days has worse shortness of breath. No chest pain, palpitation, fever/chills. Her cough is not productive. She had COVID months ago. She does have a remote history of a DVT. She has previously been on dialysis but this was not recently, and was in setting of acute illness and only for one month. On the day of discharge patient did have a drop in blood pressure and likely was over diuresed. She needed a bolus of 250 mL normal saline to stabilize her soft blood pressure. However patient not complaining any shortness of breath, wheezing or production of sputum. No abdominal pain constipation or diarrhea. No chest pain or palpitations that she noted. Able to move all extremities volitionally. Discharge Providers Provider Date of admission: 10/22/21 18:48 Discharge Date: 10/24/21 Consults: 10/22/21 21:29 Consult to Respiratory Therapy Evaluate & Treat Comment: overnight cpap Physician Instructions: Evaluate and treat Discharge provider: Nelida Barrera MD Summary Hospital Course Discharge Diagnosis: Congestive heart failure exacerbation, HFimpEF. Hospital Course: Patient has a congestive heart failure exacerbation was settled with intravenous furosemide. However even a dose of 40 mg IV every 12 hours did drop her blood pressure. Patient required on October 23, 2021 a bolus of 500 mils to stabilize her blood pressure and again on October 24 prior to discharge required a bolus of 250 mL. On discharge patient will be transitioned to her regular oral dose of furosemide 40 mg daily. There is a concern for GERD during the hospital stay contributing to cough, and patient has been placed on pantoprazole 40 mg b.i.d. patient was discharged in a stable condition Status at Discharge Cognitive/behavioral status at discharge: at baseline, oriented Functional status at discharge: independent ambulation Overall status at discharge: patient is back to baseline Exam Vital Signs (past 8 hours): - 10/24/21 07:59 10/24/21 07:56 10/24/21 10:22 Temperature 98.1 F Pulse Rate 77 68 Respiratory Rate 16 Blood Pressure 107/43 L 107/43 L 130/109 H Pulse Oximetry 94 Oxygen Delivery Method Oxygen Flow Rate 0 10/24/21 10:36 10/24/21 11:00 10/24/21 12:00 Temperature 97.1 F L Pulse Rate 78 68 Respiratory Rate 16 Blood Pressure 78/39 L 80/36 L Pulse Oximetry 90 L Oxygen Delivery Method Room Air Oxygen Flow Rate 0 Oxygen Delivery Method Room Air Oxygen Flow Rate 0 Narrative Exam Narrative: Patient alert oriented in no acute distress HEENT: Head normocephalic. Pupils equal reactive to light. Extraocular movements normal. Neck is supple. Trachea is midline Cardiovascular: Heart sounds S1 and S2 with no extra sounds or murmurs. Respiratory: Chest is clear to auscultation no wheezes or crackles Gastrointestinal: Abdomen is soft nontender bowel sounds normal Musculoskeletal: Able to move all extremities. Volitionally no localized strength deficits Neuro: Normal sensation of all extremities. Skin: No lesions or rashes Objective Labs Result Diagrams: 10/23/21 06:02 10/24/21 06:56 Labs: Laboratory Results - last 24 hr 10/24/21 06:56 Sodium 139 Potassium 4.0 Chloride 105 Carbon Dioxide 28 BUN 46 H Creatinine 2.82 H Estimated GFR 18 L BUN/Creatinine Ratio 16.3 Glucose 107 Calcium 8.3 L Total Bilirubin 0.3 AST 26 ALT 17 Alkaline Phosphatase 95 Total Protein 7.4 Albumin 3.8 Globulin 3.6 Albumin/Globulin Ratio 1.1 [facility] Social History household members: significant other Smoking Status: Never smoker alcohol intake: never Discharge Assessment & Plan Assessment and Plan Assessment: Congestive heart failure exacerbation in patient with HFimpEF. Plan of Treatment: 1. Shortness of breath Underlying congestive heart failure.? Following echo her classification now is HFimpEF with ejection fracture of 40-45% currently. Will transition to oral furosemide for discharge at 40 mg per day and spironolactone 25 mg daily on discharge. 2. GRZEGORZ on CKD stage 3 GFR and creatinine have been stable since presentation.? 3. Anemia Hemoglobin stable since admission. 4. Elevated troponin, myocardial demand ischemia Stable since admission at high normal/marginally elevated. 5. CAD s/p PCI Continue patient's regular medication of statin and Plavix. 6. Type 2 DM on insulin Lantus 25 units daily and low sliding scale insulin while in the hospital. Patient can return to using her insulin aspart and glargine with her usual doses on discharge. 7. Sciatica Pain medication as needed with acetaminophen. Treatment with pregabalin at night 8. WALTER This should be followed in the community with her primary care provider. 9. Intermittent hypotension likely secondary to over-diuresis. Stable at discharge. 10. Concern for GERD. Treating with famotidine 20 mg b.i.d. Discharge Plan Discharge Plan Patient Disposition: Home Discharge orders & Medications Prescriptions: Continued furosemide 40 mg tablet 40 mg PO QAM Label Comments: TAKE 1 TABLET BY MOUTH ONCE DAILY isosorbide dinitrate 10 mg tablet 10 mg PO BID Label Comments: TAKE 1 TABLET BY MOUTH TWICE DAILY docusate sodium 50 mg Capsule 50 mg PO BID clopidogrel 75 mg tablet 75 mg PO QAM Label Comments: TAKE 1 TABLET BY MOUTH ONCE DAILY spironolactone 25 mg tablet 25 mg PO QAM Label Comments: TAKE 1 TABLET BY MOUTH ONCE DAILY carvedilol 3.125 mg tablet 3.125 mg PO BID Label Comments: TAKE 1 TABLET BY MOUTH TWICE DAILY famotidine 20 mg Tablet 20 mg PO BID ferrous sulfate 325 mg (65 mg iron) Tablet 325 mg PO DAILY aspirin 81 mg Tablet,Chewable 81 mg PO DAILY insulin aspart U-100 [Novolog PenFill U-100 Insulin] 100 unit/mL Cartridge See Rx Instructions .ROUTE .COMPLEX Rx Instructions: take AM dose: 2 units, Noon Dose: 3 units, HS dose: 2 units. rosuvastatin 40 mg tablet 40 mg PO QPM Label Comments: TAKE 1 TABLET BY MOUTH ONCE DAILY pregabalin 50 mg capsule 50 mg PO QAM Label Comments: TAKE 1 CAPSULE BY MOUTH ONCE DAILY insulin glargine [Lantus Solostar U-100 Insulin] 100 unit/mL (3 mL) insulin pen 25 unit SUBCUT QAM Entresto 24-26 mg tablet 24 - 26 tab PO BID Label Comments: TAKE 1 TABLET BY MOUTH TWICE DAILY
== END 2021-10-24 15:30 | disposition home or self-care (01) | DRG 291 ==
LOC: ED 18:47 → AC 18:50
PROVIDERS: Internal Medicine; Admitting Provider Neuromusculoskeletal Medicine, Sports Medicine; Emergency Provider Emergency Medicine; Referring Provider Emergency Medicine; Visit Provider Neuromusculoskeletal Medicine, Sports Medicine
DX: I13.0 Hypertensive heart and chronic kidney disease with heart failure and stage 1 through stage 4 chronic kidney disease, or unspecified chronic kidney disease (principal); I50.23 Acute on chronic systolic (congestive) heart failure; N17.9 Acute kidney failure, unspecified; I24.8 Other forms of acute ischemic heart disease; N18.30 Chronic kidney disease, stage 3 unspecified; I25.10 Atherosclerotic heart disease of native coronary artery without angina pectoris; M54.31 Sciatica, right side; E11.22 Type 2 diabetes mellitus with diabetic chronic kidney disease; I95.9 Hypotension, unspecified; K21.9 Gastro-esophageal reflux disease without esophagitis; D64.9 Anemia, unspecified; Z79.4 Long term (current) use of insulin; Z95.5 Presence of coronary angioplasty implant and graft; Z20.822 Contact with and (suspected) exposure to COVID-19
CPT/HCPCS: 36415; 71045; 76770; 80048; 80053; 82550; 82553; 82570; 82962; 83690; 83735; 83880; 84300; 84484; 85025; 87635; 93005; 93010; 93306; 93971; 96374; 96375; 99284; C9803; J1170; J1644; J1815; J1940; Q9957